=== PATIENT | female | born 1955 | race Caucasian/White ===

== ENCOUNTER 2023-02-01 05:16 | Emergency (ER) | payer OTHER, SELFPAY ==
[2023-02-01 05:18] VITALS: BP 150/115; PULSE 91; RESP 16; TEMP 37.1; O2SAT 98; BMI 22.7
--- NOTE | 2023-02-01 05:42 | ED.SKABFB1 ---
HPI - Skin/Abscess/Foreign Bdy General Chief complaint: Skin/Abscess/Foreign Body Stated complaint: RT HAND SWELLING Time Seen by Provider: 02/01/23 05:37 Source: patient Mode of arrival: walk-in Limitations: no limitations History of Present Illness HPI narrative: playing golf this week end and was stung on her right hand. swelling of the hand has spread to involve her entire forearm. Arm and hand itch. No pain or fever. Feels tight Related Data Home Medications Medication Instructions Recorded Confirmed levothyroxine 112 mcg tablet 112 mcg PO DAILY 02/01/23 02/01/23 Allergies Allergy/AdvReac Type Severity Reaction Status Date / Time Penicillins Allergy Unknown Verified 02/01/23 05:21 Review of Systems ROS Status of ROS 10 or more systems reviewed and unremarkable except as noted in history and below [facility] Social History Smoking status: Never smoker Exam Constitutional Vital Signs, click to edit/add: Last Vital Signs Temp 98.7 F 02/01/23 05:18 Pulse 91 H 02/01/23 05:18 Resp 16 02/01/23 05:18 BP 130/93 H 02/01/23 05:47 Pulse Ox 98 02/01/23 05:18 O2 Del Method Room Air 02/01/23 05:18 Common normals: no apparent distress, oriented x3, healthy appearing, alert and well nourished Eye Common normals: EOMs intact bilaterally and conjunctivae normal Respiratory Common normals: normal respiratory effort, no retractions and no use of accessory muscles Cardio Common normals: regular rate, regular rhythm, S1 normal heart sound and S2 normal heart sound Extremity Other: swelling right hand and forearm. Nontender Neuro Common normals: oriented x3, CN's II-XII intact bilaterally, moves all extremities and no focal motor deficits Psych Appearance: grossly normal Course Vital Signs Vital signs: Vital Signs Temperature 98.7 F 02/01/23 05:18 Pulse Rate 91 H 02/01/23 05:18 Respiratory Rate 16 02/01/23 05:18 Blood Pressure 150/115 H 02/01/23 05:18 Pulse Oximetry 98 02/01/23 05:18 Oxygen Delivery Method Room Air 02/01/23 05:18 Temperature 98.7 F 02/01/23 05:18 Pulse Rate 91 H 02/01/23 05:18 Respiratory Rate 16 02/01/23 05:18 Blood Pressure 130/93 H 02/01/23 05:47 Pulse Oximetry 98 02/01/23 05:18 Oxygen Delivery Method Room Air 02/01/23 05:18 MDM - Skin/Abscess/Foreign Bdy MDM Narrative Medical decision making narrative: patient bitten by insect this past weekend while golfing. stung right hand . Developed swelling of the hand that has extended up to include her forearm . Swelling is tight and her extremity itches. No pain or fever. extremity is nontender. treated as an allergic reaction with dose of solumedrol and benadryl. Discharged home with a prescription of prednisone and is to follow up with her doctor Discharge Plan Discharge Chief Complaint: Skin/Abscess/Foreign Body Clinical Impression: Allergic reaction to insect bite Patient Disposition: Home, Self-Care Prescriptions / Home Meds: No Action levothyroxine 112 mcg tablet 112 mcg PO DAILY Instructions: Allergies (ED) Additional Instructions: follow up with your family doctor in 2-3 days Stand Alone Forms: Portal Instructions Referrals: Physician,Non-Staff, MD [Primary Care Provider] - 1 week Discharge Date/Time: 02/01/23 06:37
[2023-02-01 05:47] VITALS: BP 130/93
[2023-02-01] MEDS: DIPHENHYDRAMINE HCL 50 MG/ML (1ML) VIAL IV (05:53)
[2023-02-01] MEDS: METHYLPREDNISOLONE SOD SUCC PF 125 MG/2 ML VIAL IVP (05:53)
== END 2023-02-01 06:37 | disposition home or self-care (01) ==
PROVIDERS: Emergency Provider Internal Medicine
DX: S60.561A Insect bite (nonvenomous) of right hand, initial encounter (principal); W57.XXXA Bitten or stung by nonvenomous insect and other nonvenomous arthropods, initial encounter; Z79.890 Hormone replacement therapy
CPT/HCPCS: 96374; 96375; 99284; J2930